=== PATIENT | male | born 1985 ===

== ENCOUNTER 2021-09-27 01:43 | Emergency (ER) | payer SELFPAY ==
[2021-09-27 01:50] VITALS: BP 135/83
[2021-09-27] MEDS ORDERED: LIDOCAINE 1%/EPI 1:200,000/PF 10 ML VIAL SQ ONE (02:00)
[2021-09-27] MEDS ORDERED: BACITRACIN 0.9 GM PACKET OINTMENT TP ONE (02:00)
[2021-09-27] MEDS ORDERED: PERTUSS(ACELL),DIPH,TET VAC/PF 0.5 ML SYRINGE IM. ONE (02:00)
== END 2021-09-27 02:30 | disposition left against medical advice (07) ==
LOC: EMS 01:47
DX: S01.81XA Laceration without foreign body of other part of head, initial encounter (principal); Y08.89XA Assault by other specified means, initial encounter; Y93.89 Activity, other specified; Y92.89 Other specified places as the place of occurrence of the external cause; Y99.8 Other external cause status
CPT/HCPCS: 90471; 90715; 99283; J3490